=== PATIENT | male | born 1990 | race Hispanic/Latino ===

== ENCOUNTER → 2020-09-29 | Emergency (ER) | payer OTHER ==
[2020-09-29 21:47] VITALS: BP 124/68
[2020-09-29 23:00] VITALS: BP 124/68
[2020-09-30 00:37] VITALS: BP 124/68
== END ==
LOC: EEVIPCON 21:37 → EDH 21:37
DX: T76.21XA Adult sexual abuse, suspected, initial encounter (principal); F20.9 Schizophrenia, unspecified